=== PATIENT | female | born 1960 | race Caucasian/White ===

== ENCOUNTER → 2016-08-31 | Outpatient (CLI) | payer BC | LOC: WI 13:57 | PROVIDERS: ATTEND Specialist | DX: Z12.31 Encounter for screening mammogram for malignant neoplasm of breast (principal) | CPT/HCPCS: 77067; G0202 ==

== ENCOUNTER 2017-06-26 11:50 | Inpatient (IN) | payer BC ==
--- NOTE | 2017-06-26 12:06 | ER Document Report ---
ED Medical Screen (RME) - General Chief Complaint: Numbness of Arm Stated Complaint: LEFT SIDE NUMBNESS Time Seen by Provider: 06/26/17 12:04 Notes: Patient states that for the last week she has noticed that her left face is weak , her left hand feels weak, and she has some numbness in the left arm. TRAVEL OUTSIDE OF THE [place] IN LAST 30 DAYS: No - Related Data Allergies/Adverse Reactions: Penicillins Allergy (Unknown, Verified 06/26/17 11:51) Past Medical History - Past Medical History Cardiac Medical History: Denies: Hx Coronary Artery Disease, Hx Heart Attack, Hx Hypertension Pulmonary Medical History: Denies: Hx Asthma, Hx Bronchitis, Hx COPD, Hx Pneumonia Neurological Medical History: Denies: Hx Cerebrovascular Accident, Hx Seizures GI Medical History: Denies: Hx Hepatitis, Hx Hiatal Hernia, Hx Ulcer Musculoskeltal Medical History: Denies Hx Arthritis Infectious Medical History: Denies: Hx Hepatitis Past Surgical History: Reports: Hx Hysterectomy. Denies: Hx Mastectomy, Hx Open Heart Surgery, Hx Pacemaker - Immunizations Hx Diphtheria, Pertussis, Tetanus Vaccination: Yes Physical Exam - Vital signs Vitals: Temp Pulse Resp BP Pulse Ox 97.6 F 68 16 140/70 H 98 06/26/17 11:56 06/26/17 11:56 06/26/17 11:56 06/26/17 11:56 06/26/17 11:56 Course - Vital Signs Vital signs: Temp Pulse Resp BP Pulse Ox 97.6 F 68 16 140/70 H 98 06/26/17 11:56 06/26/17 11:56 06/26/17 11:56 06/26/17 11:56 06/26/17 11:56
[2017-06-26 12:45] LABS: ABSOLUTE BASOPHILS # (AUTO) 0.1 10^3/uL (0.0-0.2); ABSOLUTE EOSINOPHILS # (AUTO) 0.2 10^3/uL (0.0-0.6); ABSOLUTE LYMPHOCYTES (AUTO) 3.3 10^3/uL (0.5-4.7); ABSOLUTE MONOCYTES (AUTO) 0.6 10^3/uL (0.1-1.4); ABSOLUTE NEUT (AUTO) 5.1 10^3/uL (1.7-8.2); BASOPHILS % (AUTO) 0.9 % (0-2); EOSINOPHILS % (AUTO) 1.8 % (0-6); HEMATOCRIT 39.8 % (36.0-47.0); HEMOGLOBIN 13.6 g/dL (12.0-15.5); MEAN CORPUSCULAR HGB CONC 34.3 g/dL (32.0-36.0); MEAN CORPUSCULAR VOLUME 90 fl (80-97); MONOCYTES % (AUTO) 6.2 % (3-13); RED CELL DISTRIBUTION WIDTH 13.3 % (11.5-14.0); SEGMENTED NEUTROPHILS % (AUTO) 55.1 % (42-78); WHITE BLOOD COUNT 9.3 10^3/uL (4.0-10.5)
[2017-06-26 12:50] LABS: ALANINE AMINOTRANSFERASE 33 U/L (9-52); ALBUMIN 4.5 g/dL (3.5-5.0); ALKALINE PHOSPHATASE 106 U/L (38-126); ANION GAP 8 (5-19); ASPARTATE AMINO TRANSFERASE 28 U/L (14-36); BILIRUBIN,DIRECT 0.1 mg/dL (0.0-0.4); BILIRUBIN,TOTAL 0.3 mg/dL (0.2-1.3); BLOOD UREA NITROGEN 15 mg/dL (7-20); CALCIUM 9.7 mg/dL (8.4-10.2); CARBON DIOXIDE 31 mmol/L (22-30); CHLORIDE 103 mmol/L (98-107); CREATININE RESULT 0.67 mg/dL (0.52-1.25); GLUCOSE 95 mg/dL (75-110); POTASSIUM 3.8 mmol/L (3.6-5.0); SODIUM 142.4 mmol/L (137-145); TOTAL PROTEIN 7.7 g/dL (6.3-8.2)
--- NOTE | 2017-06-26 13:05 | RADIOLOGY REPORT (SQ) ---
EXAM DESCRIPTION: CT HEAD WITHOUT COMPLETED DATE/TIME: 06/26/2017 12:43 pm REASON FOR STUDY: left face/hand weak COMPARISON: None. TECHNIQUE: Axial images acquired through the brain without intravenous contrast. Images reviewed wi th bone, brain and subdural windows. Images stored on PACS. All CT scanners at this facility use dose modulation, iterative reconstruction, and/or weight based d osing when appropriate to reduce radiation dose to as low as reasonably achievable (ALARA). [facility]: Dose Right [facility]: CareDose [facility]: Dose Right [facility]: Teradose 4D [facility]: Smart ClickScanShare RADIATION DOSE: CT Rad equipment meets quality standard of care and radiation dose reduction techniq ues were employed. CTDIvol: 64.6 mGy. DLP: 1163 mGy-cm. mGy. LIMITATIONS: None. FINDINGS: VENTRICLES: Normal size and contour. CEREBRUM: No masses. No hemorrhage. No midline shift. No evidence for acute infarction. Normal gra y/white matter differentiation. No areas of low density in the white matter. CEREBELLUM: No masses. No hemorrhage. No alteration of density. No evidence for acute infarction. EXTRAAXIAL SPACES: No fluid collections. No masses. ORBITS AND GLOBE: No intra- or extraconal masses. Normal contour of globe without masses. CALVARIUM: No fracture. PARANASAL SINUSES: No fluid or mucosal thickening. SOFT TISSUES: No mass or hematoma. OTHER: No other significant finding. IMPRESSION: NORMAL BRAIN CT WITHOUT CONTRAST. EVIDENCE OF ACUTE STROKE: NO. COMMENT: Quality ID # [id number]: Final reports with documentation of one or more dose reduction techniques (e.g., Automated exposure control, adjustment of the mA and/or kV according to patient size, use of iterative reconstruction technique) TECHNICAL DOCUMENTATION: JOB ID: [id number] [employer]- All Rights Reserved
--- NOTE | 2017-06-26 13:15 | EKG REPORT ---
SEVERITY:- NORMAL ECG - SINUS RHYTHM : Confirmed by: Nain Ma MD 26-Jun-2017 13:14:10
--- NOTE | 2017-06-26 15:11 | RADIOLOGY REPORT (SQ) ---
EXAM DESCRIPTION: MRI HEAD WITHOUT COMPLETED DATE/TIME: 06/26/2017 2:46 pm REASON FOR STUDY: left eye lid droop-, left hand numbness COMPARISON: CT brain 06/26/2017 TECHNIQUE: Multiplanar imaging includes non-contrasted T1, T2, FLAIR, and diffusion with ADC map seq uences. Images stored on PACS. LIMITATIONS: None. FINDINGS: ANATOMY: No developmental anomalies. Normal vascular flow voids. Pituitary gland flattene d against the sellar floor, an anatomic variant CSF SPACES: Normal in size and contour. No hemorrhage. CEREBRUM: Diffusion-weighted images are positive for several punctate foci of restricted diffusion in the nash-white junction along the right frontal and right parietal regions best shown on diffusion i mages 21 and 22. In these areas on the T1 and T2 images, no parenchymal hemorrhage is identified. Remainder of the brain parenchyma is otherwise unremarkable. No mass effect or midline shift. No ac [place] hemorrhage POSTERIOR FOSSA: No signal alteration. No hemorrhage. No edema, masses or mass effect. Internal js tory canals, cerebello-pontine angles, mastoids normal. DIFFUSION IMAGING: Positive as above. ORBITS: No masses. Globes normal. PARANASAL SINUSES: Paranasal sinuses are clear. Old right mastoidectomy defects filled with fluid. Middle ear fluid on the right. OTHER: No other significant finding. IMPRESSION: Punctate acute infarcts at the nash-white junction of the right frontal and right pariet al regions. EVIDENCE OF ACUTE STROKE: Yes TECHNICAL DOCUMENTATION: JOB ID: [id number] [employer]- All Rights Reserved
[2017-06-26] MEDS ORDERED: ASPIRIN 325 MG TABLET PO ONE (15:16)
--- NOTE | 2017-06-26 15:21 | ER Document Report ---
ED General - General Chief Complaint: Numbness of Arm Stated Complaint: LEFT SIDE NUMBNESS Time Seen by Provider: 06/26/17 12:04 Mode of Arrival: Ambulatory Information source: Patient Notes: 56-year-old female presents with complaints of numbness tingling sensation in her left hand as well as left eye droop. Patient notes symptoms have been ongoing for approximately 5 days. She denies any fevers or chills denies any head trauma. Patient denies any previous CVA, she is not on any blood thinners TRAVEL OUTSIDE OF THE [place] IN LAST 30 DAYS: No - HPI Onset: Last week Onset/Duration: Persistent Quality of pain: No pain Severity: Mild Pain Level: Denies Associated symptoms: Other Exacerbated by: Denies Relieved by: Denies Similar symptoms previously: Yes Recently seen / treated by doctor: Yes - Seen by PCP - Related Data Allergies/Adverse Reactions: Penicillins Allergy (Unknown, Verified 06/26/17 11:51) Home Medications: Current Home Medications Acyclovir [Acyclovir 400 mg Tablet] 400 mg PO BID 06/26/17 [History] Loteprednol Etabonate [Lotemax] 1 drop OP PRN PRN 06/26/17 [History] Timolol Maleate [Timolol Maleate] 1 drop OP PRN PRN 06/26/17 [History] Past Medical History - Social History Smoking Status: Former Smoker Cigarette use (# per day): No Chew tobacco use (# tins/day): No Smoking Education Provided: No Frequency of alcohol use: Rare Drug Abuse: None Family History: Reviewed & Not Pertinent Patient has suicidal ideation: No Patient has homicidal ideation: No - Past Medical History Cardiac Medical History: Denies: Hx Coronary Artery Disease, Hx Heart Attack, Hx Hypertension Pulmonary Medical History: Denies: Hx Asthma, Hx Bronchitis, Hx COPD, Hx Pneumonia Neurological Medical History: Denies: Hx Cerebrovascular Accident, Hx Seizures Renal/ Medical History: Denies: Hx Peritoneal Dialysis GI Medical History: Denies: Hx Hepatitis, Hx Hiatal Hernia, Hx Ulcer Musculoskeltal Medical History: Denies Hx Arthritis Infectious Medical History: Denies: Hx Hepatitis Past Surgical History: Reports: Hx Hysterectomy. Denies: Hx Mastectomy, Hx Open Heart Surgery, Hx Pacemaker - Immunizations Hx Diphtheria, Pertussis, Tetanus Vaccination: Yes Review of Systems - Review of Systems Notes: REVIEW OF SYSTEMS: CONSTITUTIONAL : Denies fever, chills, or sweats. Denies recent illness. EENT: Denies eye, ear, throat, or mouth pain or symptoms. Denies nasal or sinus congestion or discharge. Denies throat, tongue, or mouth swelling or difficulty swallowing. CARDIOVASCULAR: Denies chest pain. Denies palpitations or racing or irregular heart beat. Denies ankle edema. RESPIRATORY: Denies cough, cold, or chest congestion. Denies shortness of breath, difficulty breathing, or wheezing. GASTROINTESTINAL: Denies abdominal pain or distention. Denies nausea, vomiting , or diarrhea. Denies blood in vomitus, stools, or per rectum. Denies black, tarry stools. Denies constipation. GENITOURINARY: Denies difficulty urinating, painful urination, burning, frequency, blood in urine, or discharge. FEMALE GENITOURINARY: Denies vaginal bleeding, heavy or abnormal periods, irregular periods. Denies vaginal discharge or odor. MUSCULOSKELETAL: Denies back or neck pain or stiffness. Denies joint pain or swelling. SKIN: Denies rash, lesions or sores. HEMATOLOGIC : Denies easy bruising or bleeding. LYMPHATIC: Denies swollen, enlarged glands. NEUROLOGICAL: Admits to left eye drooping left hand paresthesia PSYCHIATRIC: Denies anxiety or stress. Denies depression, suicidal ideation, or homicidal ideation. ALL OTHER SYSTEMS REVIEWED AND NEGATIVE. PHYSICAL EXAMINATION: GENERAL: Well-appearing, well-nourished and in no acute distress. HEAD: Atraumatic, normocephalic. EYES: Pupils equal round and reactive to light, extraocular movements intact, conjunctiva are normal. ENT: Nares patent, oropharynx clear without exudates. Moist mucous membranes. NECK: Normal range of motion, supple without lymphadenopathy LUNGS: Breath sounds clear to auscultation bilaterally and equal. No wheezes rales or rhonchi. HEART: Regular rate and rhythm without murmurs ABDOMEN: Soft, nontender, nondistended abdomen. No guarding, no rebound. No masses appreciated. Female : deferred Musculoskeletal: Normal range of motion, no pitting or edema. No cyanosis. NEUROLOGICAL: Cranial nerves grossly intact. Normal speech, normal gait. Normal sensory, motor exams except for paresthesia of the left hand PSYCH: Normal mood, normal affect. SKIN: Warm, Dry, normal turgor, no rashes or lesions noted. Dictation was performed using [employer] voice recognition software Physical Exam - Vital signs Vitals: Temp Pulse Resp BP Pulse Ox 97.6 F 68 16 140/70 H 98 06/26/17 11:56 06/26/17 11:56 06/26/17 11:56 06/26/17 11:56 06/26/17 11:56 Course - Re-evaluation Re-evalutation: 06/26/17 15:20 Punctate acute infarcts noted o nthe right frontal and right parietal regions, pt will be observed i nthe hospitla she is out of the time frame for thrombolytics 06/26/17 16:39 Patient will be admitted to the hospitalist service - Vital Signs Vital signs: Temp Pulse Resp BP Pulse Ox 97.6 F 68 17 136/84 H 98 06/26/17 11:56 06/26/17 11:56 06/26/17 16:01 06/26/17 16:01 06/26/17 16:01 - Laboratory Result Diagrams: 06/26/17 12:01 06/26/17 12:01 Laboratory results interpreted by me: 06/26/17 12:01 Carbon Dioxide 31 H - Diagnostic Test Radiology reviewed: Image reviewed, Reports reviewed Discharge - Discharge Clinical Impression: Stroke Qualifiers: CVA mechanism: embolism Precerebral and cerebral artery: anterior cerebral artery Laterality of affected vessel: right Qualified Code(s): I63.421 - Cerebral infarction due to embolism of right anterior cerebral artery Condition: Stable Disposition: ADMITTED INPATIENT Admitting Provider: Hospitalist Unit Admitted: [facility]
[2017-06-26] MEDS ORDERED: ACETAMINOPHEN 325 MG TABLET PO PRN (16:25)
[2017-06-26] MEDS ORDERED: ONDANSETRON HCL INJ/PF 4 MG/2 ML SDV IV PRN (16:25)
[2017-06-26] MEDS ORDERED: DOCUSATE SODIUM 100 MG CAPSULE PO PRN (16:36)
[2017-06-26] MEDS ORDERED: (PENDING PHARMACY ID) (Loteprednol Etabonate [Lotemax] 1 DROP) OP PRN (16:37)
[2017-06-26] MEDS ORDERED: TIMOLOL MALEATE 0.5% OPH SOLN 5 ML OP PRN (16:37)
--- NOTE | 2017-06-26 16:42 | ER Document Report ---
ED NIH Stroke Scale - NIH Stroke Scale *: 1. NIH scale should be completed with appropriate accompanying assessment tools. *: 2. The NIH should reflect what the patient is capable of doing and should not be coached by the clinician. 1a. Level of Consciousness: 0=Alert;keenly responsive -: 1=Drowsy -: 2=Obtunded -: 3=Coma/unresponsive or reflex to noxious stimuli. 1a. Responses: 0 1b. Orientation Questions: a. What month is it? -: b. How old are you? -: 0=Answers both questions correctly. -: 1=Answers one question correctly or patient is intubated or has orotracheal trauma. -: 2=Answers neither question correctly. 1b. Responses: 0 1c. Response to commands: a. Open and close eyes? -: b. Container Finishing Inspector and release hand? -: Credit is given despite weakness. Demonstration of task is permitted. Substitute command if hands cannot be used. -: 0=Performs both tasks correctly -: 1=Performs one task correctly -: 2=Performs neither task correctly 1c. Responses: 0 2. Gaze: Establish eye contact and instruct patient to "Follow my finger" -: 0=Normal -: 1=Partial gaze palsy. Gaze is abnormal in one or both eyes, but where forced deviation or total gaze paresis is not present. -: 2=Forced deviation or total gaze paresis. 2. Responses: 0 3. Visual Howard: Sees fingers in all four quadrants. -: 0=No visual loss. -: 1=Partial hemianopsia. -: 2=Complete hemianopsia. -: 3=Bilateral hemianopsia (including Cortical blindness) 3. Responses: 0 4. Facial Movement: Instruct patient to: -: a. Show me your teeth -: b. Raise your eyebrows -: c. Close your eyes -: d. Smile -: 0=Normal symmetrical movement -: 1=Minor paralysis (flattened nasolabial fold, asymmetry on smiling). -: 2=Partial paralysis (total or near total paralysis of lower face). -: 3=Complete paralysis of upper and lower face 4. Responses: 1 5. Motor functions (left arm): Alternate sides and extend each arm with palms down (90 degrees if sitting or 45 degrees for supine). -: 0=No drift;limb holds for full 10 seconds. -: 1=Drift; limb holds but drifts down before full 10 seconds, but does not hit bed. -: 2=Some effort against gravity; limb cannot get to or maintain position. -: 3=No effort against gravity; limb falls. -: 4=No movement. -: UN=Amputation, joint fusion, explain in comments. 5. Responses (left arm): 0 5. Motor Functions (right arm): Alternate sides and extend each arm with palms down (90 degrees if sitting or 45 degrees for supine). -: 0=No drift;limb holds for full 10 seconds. -: 1=Drift; limb holds but drifts down before full 10 seconds, but does not hit bed. -: 2=Some effort against gravity; limb cannot get to or maintain position. -: 3=No effort against gravity; limb falls. -: 4=No movement. -: UN=Amputation, joint fusion, explain in comments. 5. Responses (right arm): 0 6. Motor Functions (left leg): With patient lying supine, alternate sides and extend each leg (30 degrees always while supine). -: 0=No drift, leg holds position for full 5 seconds -: 1=Drift; leg falls before full 5 seconds but does not hit bed. -: 2=Some effort against gravity, leg falls to bed but some effort against gravity. -: 3=No effort against gravity, leg falls to bed immediately. -: 4=No movement. -: UN=Amputation, joint fusion; explain in comments. 6. Responses (left leg): 0 6. Motor Functions (right leg): With patient lying supine, alternate sides and extend each leg (30 degrees always while supine). -: 0=No drift, leg holds position for full 5 seconds -: 1=Drift; leg falls before full 5 seconds but does not hit bed. -: 2=Some effort against gravity, leg falls to bed but some effort against gravity. -: 3=No effort against gravity, leg falls to bed immediately. -: 4=No movement. -: UN=Amputation, joint fusion; explain in comments. 6. Responses (right leg): 0 7. Limb Ataxia: With eyes open instruct patient to: -: a. "Touch your finger to your nose". -: b. "Touch your heel to your lloyd" -: 0=Absent -: 1=Present in one limb. -: 2=Present in two limbs. -: UN=Amputation or joint fusion; explain in comments. 7. Responses: 0 8. Sensory: Test sensation using pinprick or noxious stimuli. Test as many body parts as possible. -: 0=Normal;no sensory loss -: 1=Mile to moderate sensory loss (patient feels pin prick but is less sharp on affected side). -: 2=Severe or total sensory loss. 8. Responses: 1 9. Best Language: Instruct patient to: -: a. "Describe what you see in this picture." -: b. "Name the items in this picture." -: c. "Read these sentences." -: 0=No aphasia, normal -: 1=Mild to moderate aphasia. -: 2=Severe aphasia -: 3=Mute, global aphasia, no usable speech or auditory comprehension. 9. Responses: 0 10. Articulation, Dysarthia: Instruct patient to: -: "Read these words" or "Repeat these words" -: 0=Normal -: 1=Mild to moderate; patient may slur some words but can be understood without difficulty. -: 2=Severe; patients speech so slurred as to be unintelligible in the absence of dysphasia. -: UN=Intubated or other physical barrier, explain in comments. 10. Responses: 0 11. Extinction or inattention: 0=No abnormality -: 1= Visual, tactile, auditory, spatial, or personal inattention or extinction to bilateral simulation in one or the sensory modalities. -: 2=Profound chris-inattention or chris-inattention to more than one modality; does not recognize own hand. 11. Responses: 0 Total Score: 2
[2017-06-26 17:05] LABS: PARTIAL THROMBOPLASTIN TIME 28.3 SEC (23.5-35.8); PROTHROMBIN TIME 12.4 SEC (11.4-15.4)
--- NOTE | 2017-06-26 17:06 | PDOC H&P ---
History of Present Illness Admission Date/PCP: 06/26/17 16:09 Patient complains of: left sided numbness, weakness for a couple of days History of Present Illness: FABIAN LONG is a 56 year old female reports to the ED from home with complaints of left eye droop, left finger numbness and hand weakness and left leg weakness of at least 24hrs duration. She first started feeling "bad" about a week ago with Rt temporal forehead SAUNDERS as intermittent sharp stabbing nonradiating pain with associated Rt neck and ear pain that lasted a couple of days. Shortly thereafter she noticed her left eyelid drooping and "pressure" sensation in left fingers 3-5. Over the next days these became more noticeable culminating in left leg clumsiness, left hand weakness last night prompting a visit to the ED today for evaulation. she denies vision changes, difficulty chewing her food or swallowing, hearing changes, slurred speech, chest pain, palpitations, dyspnea, fevers/chills, stiff neck, sore throat and she's never had this before. she doesn't take prophylactic ASA and has no prior hx of HTN, DM, hyperlipidemia , chronic migraines/HAs. she is postmenopausal and takes estrogen supplement; she quit smoking 10yrs ago but has at least 20 pk year history prior to quitting. she has a strong family hx of vascular disease with early AMI in her father ( at 46y.o.), brother in his 50's who also has DM, mother from ruptured aneurysm and sister with congenital HD and prior CVA. she is unaware of any inflammatory or autoimmune diseases in her family. she is right hand dominant. eval in ED shows 2 punctate ischemic areas on MRI that likely correlate with her symptoms c/w with acute/subacute CVA and we were asked to admit for further eval and management. she was given 324mg ASA in ED. she was not hypertensive upon arrival. Past Medical History Cardiac Medical History: Denies: Coronary Artery Disease, Myocardial Infarction, Hypertension Pulmonary Medical History: Denies: Asthma, Bronchitis, Chronic Obstructive Pulmonary Disease (COPD), Pneumonia Neurological Medical History: Denies: Migraine, Seizures Endocrine Medical History: Denies: None Malignancy Medical History: Denies: None GI Medical History: Denies: Hepatitis, Hiatal Hernia Musculoskeltal Medical History: Denies: Arthritis Hematology: Denies: Anemia, Sickle Cell Disease Past Surgical History Past Surgical History: Reports: Appendectomy, Hysterectomy, Tonsillectomy Denies: Amputation, Mastectomy, Pacemaker Social History Information Source: Patient Lives with: Family Smoking Status: Former Smoker Cigarettes Packs Per Day: 1 Number of Years Smokin Last Time Smoked: 2016 Frequency of Alcohol Use: Occasional Hx Recreational Drug Use: No Drugs: None Hx Prescription Drug Abuse: No - Advance Directive Resuscitation Status: Full Code Family History Family History: CAD, CVA, DM Parental Family History Reviewed: Yes Children Family History Reviewed: Yes Sibling(s) Family History Reviewed.: Yes Medication/Allergy Home Medications: Estradiol [Estrace] 0.5 mg PO DAILY 12/02/15 L. Rhamnosus GG/Inulin [Culturelle Capsule] 1 cap PO DAILY 12/02/15 Acyclovir [Acyclovir 400 mg Tablet] 400 mg PO BID 06/26/17 Loteprednol Etabonate [Lotemax] 1 drop OP PRN PRN 06/26/17 Timolol Maleate [Timolol Maleate] 1 drop OP PRN PRN 06/26/17 Allergies/Adverse Reactions: Penicillins Allergy (Unknown, Verified 06/26/17 11:51) Review of Systems All systems: reviewed and no additional remarkable complaints except as stated - all systems reviewed, see HPI, remaining systems negative Physical Exam Vital Signs: Temp Pulse Resp BP Pulse Ox 97.6 F 68 17 136/84 H 98 06/26/17 11:56 06/26/17 11:56 06/26/17 16:01 06/26/17 16:01 06/26/17 16:01 General appearance: PRESENT: no acute distress, obese, well-developed, well- nourished Head exam: PRESENT: atraumatic, normocephalic Eye exam: PRESENT: EOMI, PERRLA, other - left eye ptosis. ABSENT: conjunctival injection Mouth exam: PRESENT: moist, neck supple, tongue midline, other - left facial droop Throat exam: ABSENT: tonsillar erythema, tonsillar exudate Neck exam: PRESENT: full ROM. ABSENT: carotid bruit, JVD, lymphadenopathy, meningismus, tenderness, tracheal deviation Respiratory exam: PRESENT: clear to auscultation palmira, unlabored. ABSENT: accessory muscle use Cardiovascular exam: PRESENT: RRR. ABSENT: diastolic murmur, gallop, rubs, systolic murmur, tachycardia Pulses: PRESENT: normal carotid pulses, normal radial pulses GI/Abdominal exam: PRESENT: normal bowel sounds, soft. ABSENT: organolmegaly, tenderness Extremities exam: PRESENT: full ROM. ABSENT: clubbing, pedal edema, tenderness Musculoskeletal exam: PRESENT: ambulatory, normal inspection Neurological exam: PRESENT: alert, awake, oriented to person, oriented to place , oriented to time, oriented to situation, reflexes normal, motor sensory deficit - loss of sensation to light touch from her left forehead down her neck and shoulder and arm all the way to the left 3-5 digits but sparing her leg and torso; there is left inflatable buildings laminator weakness and left hip abductor weakness compared to the Right. ABSENT: aphasic Psychiatric exam: PRESENT: appropriate affect, normal mood Focused psych exam: ABSENT: pressured speech Skin exam: PRESENT: dry, warm. ABSENT: rash Results Laboratory Results: 06/26/17 12:01 06/26/17 12:01 MCV 90 fl (80-97) 06/26/17 12:01 MCH 31.0 pg (27.0-33.4) 06/26/17 12:01 MCHC 34.3 g/dL (32.0-36.0) 06/26/17 12:01 RDW 13.3 % (11.5-14.0) 06/26/17 12:01 Seg Neutrophils % 55.1 % (42-78) 06/26/17 12:01 Lymphocytes % 36.0 % (13-45) 06/26/17 12:01 Monocytes % 6.2 % (3-13) 06/26/17 12:01 Eosinophils % 1.8 % (0-6) 06/26/17 12:01 Basophils % 0.9 % (0-2) 06/26/17 12:01 Absolute Neutrophils 5.1 10^3/uL (1.7-8.2) 06/26/17 12:01 Absolute Lymphocytes 3.3 10^3/uL (0.5-4.7) 06/26/17 12:01 Absolute Monocytes 0.6 10^3/uL (0.1-1.4) 06/26/17 12:01 Absolute Eosinophils 0.2 10^3/uL (0.0-0.6) 06/26/17 12:01 Absolute Basophils 0.1 10^3/uL (0.0-0.2) 06/26/17 12:01 Chloride 103 mmol/L (98-107) 06/26/17 12:01 Carbon Dioxide 31 mmol/L (22-30) H 06/26/17 12:01 Anion Gap 8 (5-19) 06/26/17 12:01 Est GFR ( Amer) > 60 (>60) 06/26/17 12:01 Est GFR (Non-Af Amer) > 60 (>60) 06/26/17 12:01 Glucose 95 mg/dL (75-110) 06/26/17 12:01 Calcium 9.7 mg/dL (8.4-10.2) 06/26/17 12:01 Total Bilirubin 0.3 mg/dL (0.2-1.3) 06/26/17 12:01 AST 28 U/L (14-36) 06/26/17 12:01 ALT 33 U/L (9-52) 06/26/17 12:01 Alkaline Phosphatase 106 U/L (38-126) 06/26/17 12:01 Total Protein 7.7 g/dL (6.3-8.2) 06/26/17 12:01 Albumin 4.5 g/dL (3.5-5.0) 06/26/17 12:01 EKG Comments: NSR with normal QTc and no ectopy or ischemic changes Impressions: Head CT 06/26/17 12:04 IMPRESSION: NORMAL BRAIN CT WITHOUT CONTRAST. EVIDENCE OF ACUTE STROKE: NO. Head MRI 06/26/17 13:23 IMPRESSION: Punctate acute infarcts at the nash-white junction of the right frontal and right parietal regions. EVIDENCE OF ACUTE STROKE: Yes Status: Image reviewed by me - agree with rads Assessment & Plan - Diagnosis (1) Acute ischemic multifocal right-sided anterior circulation stroke Is this a current diagnosis for this admission?: Yes Plan: Right frontal and parietal lobe multifocal ischemia of unclear etiology. Risks include prior tobacco use, current estrogen replacement, obesity and strong family history of vascular disease manifested as AMI and CVA's. admit for further investigation including echo and carotid dopplers to r/o embolic source, labs for correctable metabolic risk factors including lipids, B12, TSH, CRP, A1c. MENDS through the night and have all therapies evaluate, she passed her bedside swallow eval per the ED nurse. Hold estrogen and start full dose ASA, high intensity statin and low dose ACEi for protective effects. (2) Parietal lobe infarction Is this a current diagnosis for this admission?: Yes Plan: Right sided with resultant left hemiparesis. I think this is the lesion accounting for most of her symptoms. eval and treat noted above (3) Postmenopausal Is this a current diagnosis for this admission?: Yes Plan: no more estrogen due to risk for stroke. 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 - Time Time Spent: Greater than 70 Minutes Medications reviewed and adjusted accordingly: Yes - Inpatient Certification Based on my medical assessment, after consideration of the patient's comorbidities, presenting symptoms, or acuity I expect that the services needed warrant INPATIENT care.: Yes I certify that my determination is in accordance with my understanding of Medicare's requirements for reasonable and necessary INPATIENT services [42 CFR 412.3e].: Yes Medical Necessity: Significant Comorbidiites Make Outpatient Treatment Too Risky , Need Close Monitoring Due to Risk of Patient Decompensation, Need For Continuous Telemetry Monitoring, Need for Neurological Checks
[2017-06-26] MEDS ORDERED: ENOXAPARIN SODIUM INJ 40 MG/0.4 ML DISP.SYRIN SUBCUT ONE (18:00)
[2017-06-26] MEDS: ACYCLOVIR 200 MG CAPSULE PO SCH (21:10)
[2017-06-26] MEDS ORDERED: ATORVASTATIN CALCIUM 80 MG TABLET PO SCH (22:00)
[2017-06-27 05:08] LABS: ABSOLUTE BASOPHILS # (AUTO) 0.1 10^3/uL (0.0-0.2); ABSOLUTE EOSINOPHILS # (AUTO) 0.1 10^3/uL (0.0-0.6); ABSOLUTE LYMPHOCYTES (AUTO) 3.6 10^3/uL (0.5-4.7); ABSOLUTE MONOCYTES (AUTO) 0.6 10^3/uL (0.1-1.4); BASOPHILS % (AUTO) 1.2 % (0-2); EOSINOPHILS % (AUTO) 1.5 % (0-6); HEMATOCRIT 38.8 % (36.0-47.0); HEMOGLOBIN 13.3 g/dL (12.0-15.5); HGB HCT DIFFERENCE 1.1; LYMPHOCYTES % (AUTO) 42.7 % (13-45); MEAN CORPUSCULAR HEMOGLOBIN 30.7 pg (27.0-33.4); MEAN CORPUSCULAR HGB CONC 34.2 g/dL (32.0-36.0); MEAN CORPUSCULAR VOLUME 90 fl (80-97); RED BLOOD COUNT 4.32 10^6/uL (3.72-5.28); RED CELL DISTRIBUTION WIDTH 13.1 % (11.5-14.0); SEGMENTED NEUTROPHILS % (AUTO) 47.6 % (42-78); WHITE BLOOD COUNT 8.5 10^3/uL (4.0-10.5)
[2017-06-27 05:25] LABS: ALANINE AMINOTRANSFERASE 33 U/L (9-52); ALBUMIN 3.9 g/dL (3.5-5.0); ALKALINE PHOSPHATASE 88 U/L (38-126); ANION GAP 9 (5-19); ASPARTATE AMINO TRANSFERASE 22 U/L (14-36); BILIRUBIN,DIRECT 0.1 mg/dL (0.0-0.4); BILIRUBIN,TOTAL 0.3 mg/dL (0.2-1.3); BLOOD UREA NITROGEN 14 mg/dL (7-20); CALCIUM 9.8 mg/dL (8.4-10.2); CARBON DIOXIDE 29 mmol/L (22-30); CHLORIDE 106 mmol/L (98-107); Direct HDL 61 mg/dL (>40); GLUCOSE 96 mg/dL (75-110); POTASSIUM 4.5 mmol/L (3.6-5.0); SODIUM 143.9 mmol/L (137-145); TOTAL PROTEIN 6.6 g/dL (6.3-8.2); TRIGLYCERIDES 142 mg/dL (<150)
[2017-06-27 05:37] LABS: DIRECT LDL 131 mg/dL (<100)
[2017-06-27 05:53] LABS: THYROID STIMULATING HORMONE 2.02 uIU/mL (0.47-4.68)
[2017-06-27] MEDS ORDERED: LANSOPRAZOLE 30 MG TAB.RAP.DR PO SCH (06:00)
[2017-06-27] MEDS ORDERED: NORMAL SALINE 1000 ML 1,000 ML IV ONE (06:30)
[2017-06-27] MEDS ORDERED: LISINOPRIL 5 MG TABLET PO SCH (10:00)
[2017-06-27] MEDS ORDERED: RHAMNOSUS GG PO SCH (10:00)
[2017-06-27] MEDS ORDERED: ASPIRIN 325 MG TABLET, ENT COATED PO SCH (10:00)
[2017-06-27] MEDS ORDERED: ENOXAPARIN SODIUM INJ 40 MG/0.4 ML DISP.SYRIN SUBCUT SCH (10:00)
[2017-06-27] MEDS ORDERED: LACTOBACILLUS ACIDOPHILUS 250 MG TAB PO SCH (10:00)
[2017-06-27] MEDS ORDERED: TIMOLOL MALEATE 0.5% OPH SOLN 5 ML OS SCH (10:00)
[2017-06-27] MEDS ORDERED: (PENDING PHARMACY ID) (Loteprednol Etabonate [Lotemax 0.5% Ophth Susp] 1 DROP) OS SCH (10:00)
[2017-06-27] MEDS ORDERED: INULIN PO SCH (10:00)
[2017-06-27] MEDS: ACYCLOVIR 200 MG CAPSULE PO SCH (10:56)
[2017-06-27] MEDS ORDERED: LISINOPRIL 5 MG TABLET PO ONE (12:00)
[2017-06-27] MEDS ORDERED: ONDANSETRON HCL INJ/PF 4 MG/2 ML SDV IV PRN (12:00)
--- NOTE | 2017-06-27 12:43 | RADIOLOGY REPORT (SQ) ---
EXAM DESCRIPTION: CAROTID DOPPLER COMPLETED DATE/TIME: 06/27/2017 11:21 am REASON FOR STUDY: embolic CVA COMPARISON: MRI brain 06/26/2017 CT brain 06/26/2017 TECHNIQUE: Grayscale ultrasound, Doppler velocity and spectra, and color Doppler images acquired of the extra-cranial carotid and vertebral arteries. Images stored on PACS. LIMITATIONS: None. FINDINGS: RIGHT CAROTID CCA Velocities: Within normal limits. ICA Velocities Peak systolic 2.3 m/s. End diastolic 0.7 m/s. Proximal ICA/CCA peak systolic ratio 3.0. There is heavy calcific plaque at the origin of the right internal carotid artery. Imaging just dist al to the shadowing plaque demonstrates turbulent flow, and peak systolic and end-diastolic velocitie s in the 50 to 69% range, closer to 69%. LEFT CAROTID CCA Velocities: Within normal limits. ICA Velocities Peak systolic 0.75 m/s. End diastolic 0.26 m/s. Proximal ICA/CCA peak systolic ratio 1.2. Spectra normal. No significant plaque. VERTEBRAL ARTERIES: Antegrade flow. Normal waveforms. SUBCLAVIAN ARTERIES: Not evaluated OTHER: No other significant finding. IMPRESSION: Significant plaque at the right carotid bifurcation. Velocities immediately distal to p laque suggest 50 to 69% diameter stenosis. Velocities are at the upper range for 50 to 69% stenosis. No left-sided significant stenosis at the carotid bifurcation Antegrade pulsatile vertebral artery flow COMMENT: Quality ID #[id number]: Velocity criteria are extrapolated from the diameter data as defined by t he Society of Radiologists in Ultrasound Consensus Conference. Radiology 2003: 229; 340-346. TECHNICAL DOCUMENTATION: JOB ID: [id number] Access Point- All Rights Reserved
--- NOTE | 2017-06-27 13:28 | XCELERA REPORT ---
[address] [address] Transthoracic Echocardiogram Report Name: FABIAN LONG Age: 56 yrs Gender: Female : 1960 Patient Status: Inpatient Patient Location: [address] [place], [place] [address] Study Date: 06/27/2017 09:17 AM Height: 60 in Weight: 200 lb BSA: 1.9 m2 Procedure: A two-dimensional transthoracic echocardiogram with color flow and Doppler was performed. Study Quality: Fair. Reason For Study: embolic CVA History: CVA. Ordering Physician: RONNIE SERRANO Performed By: Berta Fountain Interpretation Summary There is no obvious cardiac source of embolus noted on this transthoracic echocardiogram. Follow-up with a [facility] is suggested if cardiac source is still suspected. The left ventricle is normal in size. There is normal left ventricular wall thickness. LV EF is > than 60% Left ventricular systolic function is normal. LV diastolic function not assessed. The left ventricular wall motion is normal. There is no thrombus. There is no ventricular septal defect visualized. The right ventricle is normal in size and function. The right atrium is normal. The left atrial size is normal. The interatrial septum is intact with no evidence for an atrial septal defect. There is no evidence of mitral valve prolapse. There is no vegetation seen on the mitral valve. There is no mitral valve stenosis. There is a trace amount of mitral regurgitation There is no aortic valvular vegetation. There is aortic sclerrosis without stenosis. There is no LVOT obstruction. No aortic regurgitation is present. There is no tricuspid stenosis. There is a mild amount of tricuspid regurgitation Right ventricular systolic pressure is normal. RVSP is 25 to 30 mm of Hg , with RA mean of 5 to 10. The inferior vena cava appeared normal and decreased > 50% with respiration (RAP 5-10 mmHg) There is no pericardial effusion. There is no obvious cardiac source of embolus noted on this transthoracic echocardiogram. Follow-up with a [facility] is suggested if cardiac source is still suspected MMode/2D Measurements & Calculations RVDd: 2.7 cm LVIDd: 4.1 cm FS: 32.7 % Ao root diam: 2.9 cm IVSd: 0.90 cm LVIDs: 2.7 cm EDV(Teich): 72.7 ml LVPWd: 0.86 cm ESV(Teich): 27.9 ml Ao root area: 6.4 cm2 EF(Teich): 61.6 % LA dimension: 3.2 cm Doppler Measurements & Calculations MV E max jg: MV P1/2t max jg: Ao V2 max: LV V1 max P.6 cm/sec 71.1 cm/sec 138.1 cm/sec 6.4 mmHg MV A max jg: MV P1/2t: 57.9 msec Ao max PG: LV V1 max: 77.0 cm/sec 7.6 mmHg 126.1 cm/sec MV E/A: 0.92 MVA(P1/2t): 3.8 cm2 MV dec slope: 359.4 cm/sec2 PA V2 max: TR max jg: 72.6 cm/sec 221.7 cm/sec PA max PG: TR max P.7 mmHg 2.1 mmHg Left Ventricle The left ventricle is normal in size. There is normal left ventricular wall thickness. LV EF is > than 60%. Left ventricular systolic function is normal. LV diastolic function not assessed. The left ventricular wall motion is normal. There is no thrombus. There is no ventricular septal defect visualized. Right Ventricle The right ventricle is normal in size and function. Atria The right atrium is normal. The left atrial size is normal. The interatrial septum is intact with no evidence for an atrial septal defect. Mitral Valve There is no evidence of mitral valve prolapse. There is no vegetation seen on the mitral valve. There is no mitral valve stenosis. There is a trace amount of mitral regurgitation. Aortic Valve There is no aortic valvular vegetation. There is aortic sclerrosis without stenosis. There is no LVOT obstruction. No aortic regurgitation is present. Tricuspid Valve There is no tricuspid stenosis. There is a mild amount of tricuspid regurgitation. Right ventricular systolic pressure is normal. RVSP is 25 to 30 mm of Hg , with RA mean of 5 to 10. Pulmonic Valve There is no pulmonic valvular stenosis. There is no pulmonic valvular regurgitation. Great Vessels The aortic root is normal size. The inferior vena cava appeared normal and decreased > 50% with respiration (RAP 5-10 mmHg). Effusions There is no pericardial effusion. : RONNIE SERRANO > Darcy Mast
--- NOTE | 2017-06-27 14:51 | PDOC DISCHARGE SUMMARY ---
General - Admit/Disc Date/PCP Admission Date/Primary Care Provider: 06/26/17 16:09 KYRA CHAUHAN MD Discharge Date: 06/27/17 - Discharge Diagnosis (1) Acute ischemic multifocal right-sided anterior circulation stroke Is this a current diagnosis for this admission?: Yes Summary: Improved with rapidly proving symptoms; modifiable risk factors include obesity , estrogen use, hyperlipidemia, peripheral arterial disease. Continue high intensity statin, low-dose lisinopril and antiplatelet therapy. She will need to establish with PCP of choice and follow-up with him within 1-2 weeks. She was counseled regarding monitoring of her blood pressure at home to keep a diary and presented to her PCP at follow-up. She was educated with multiple materials regarding ischemic stroke and by staff and myself and expresses no questions or concerns regarding discharge home at this time. She is aware the signs and symptoms that should prompt immediate return to the hospital. (2) Parietal lobe infarction Is this a current diagnosis for this admission?: Yes (3) Postmenopausal Is this a current diagnosis for this admission?: Yes Summary: Discontinue estrogen. Follow-up with gynecology for alternative postmenopausal treatments. 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 - Additional Information Resuscitation Status: Full Code Discharge Diet: Cardiac Discharge Activity: Activity As Tolerated Prescriptions: Atorvastatin Calcium [Lipitor 80 mg Tablet] 80 mg PO QHS #30 tablet Lisinopril [Prinivil 5 mg Tablet] 2.5 mg PO DAILY #30 tablet Home Medications: Acyclovir [Acyclovir 400 mg Tablet] 400 mg PO BID 06/26/17 L. Rhamnosus/C/Zinc Cit/Yeast [Culturelle Immune Defense Cap] 1 cap PO DAILY Lifitegrast [Xiidra] 1 drop OU BID 06/26/17 Loteprednol Etabonate [Lotemax 0.5% Ophth Susp] 1 drop OS DAILY 06/26/17 Timolol Maleate [Timoptic 0.5% Oph Soln 5 ml] 1 drop OS BID 06/26/17 Acyclovir [Zovirax 200 mg Capsule] 400 mg PO Q12 capsule 06/27/17 Aspirin [Ecotrin 325 mg EC Tablet] 325 mg PO DAILY tabec 06/27/17 Atorvastatin Calcium [Lipitor 80 mg Tablet] 80 mg PO QHS #30 tablet 06/27/17 Lisinopril [Prinivil 5 mg Tablet] 2.5 mg PO DAILY #30 tablet 06/27/17 History of Present Illness Patient complains of: left sided numbness, weakness for a couple of days History of Present Illness: FABIAN LONG is a 56 year old female reports to the ED from home with complaints of left eye droop, left finger numbness and hand weakness and left leg weakness of at least 24hrs duration. She first started feeling "bad" about a week ago with Rt temporal forehead SAUNDERS as intermittent sharp stabbing nonradiating pain with associated Rt neck and ear pain that lasted a couple of days. Shortly thereafter she noticed her left eyelid drooping and "pressure" sensation in left fingers 3-5. Over the next days these became more noticeable culminating in left leg clumsiness, left hand weakness last night prompting a visit to the ED today for evaulation. she denies vision changes, difficulty chewing her food or swallowing, hearing changes, slurred speech, chest pain, palpitations, dyspnea, fevers/chills, stiff neck, sore throat and she's never had this before. she doesn't take prophylactic ASA and has no prior hx of HTN, DM, hyperlipidemia , chronic migraines/HAs. she is postmenopausal and takes estrogen supplement; she quit smoking 10yrs ago but has at least 20 pk year history prior to quitting. she has a strong family hx of vascular disease with early AMI in her father ( at 46y.o.), brother in his 50's who also has DM, mother from ruptured aneurysm and sister with congenital HD and prior CVA. she is unaware of any inflammatory or autoimmune diseases in her family. she is right hand dominant. eval in ED shows 2 punctate ischemic areas on MRI that likely correlate with her symptoms c/w with acute/subacute CVA and we were asked to admit for further eval and management. she was given 324mg ASA in ED. she was not hypertensive upon arrival. Hospital Course Hospital Course: She underwent echocardiogram that showed no significant valvular disease, no thrombus, well-preserved left ventricular function. She underwent carotid Doppler studies that showed a 50-69% obstruction of the right internal carotid at the bifurcation with antegrade flow through the vertebrobasilar system and no obstruction of the left carotid artery. Her lipid panel shows inadequate control with an LDL of 131 and total cholesterol of 219. Her C-reactive protein was upper limit of normal, TSH free T4 and B12 were all normal. Her electrolytes were normal. CBC was normal and coagulopathy did not exist. Her symptoms were rapidly improving at the time of discharge with less numbness and tingling and less noticeable left eye ptosis and facial droop. Her blood pressures became a little low on the 5 mg of lisinopril and so the dose was cut to 2.5 she received a liter fluid bolus and at the time of discharge her blood pressures were systolic 120s stable. EKG did not show any arrhythmias and monitoring overnight on telemetry showed no significant ectopy. At this time the patient is hemodynamically stable for discharge home with treatment as outlined above. Physical Exam Vital Signs: Temp Pulse Resp BP Pulse Ox 97.5 F 76 20 122/77 99 06/27/17 11:44 06/27/17 12:00 06/27/17 12:00 06/27/17 12:00 06/27/17 12:00 Intake & Output 06/26/17 06/27/17 06/28/17 06:59 06:59 06:59 Intake Total 510 574 Balance 510 574 Weight 92.2 kg General appearance: PRESENT: no acute distress, obese, well-developed, well- nourished Eye exam: PRESENT: EOMI, PERRLA, other - Mild left eye ptosis. ABSENT: nystagmus Neck exam: PRESENT: full ROM. ABSENT: carotid bruit, JVD, lymphadenopathy, meningismus, tenderness, tracheal deviation Cardiovascular exam: PRESENT: RRR Neurological exam: PRESENT: alert, awake, oriented to person, oriented to time, oriented to situation, reflexes normal. ABSENT: aphasic Psychiatric exam: PRESENT: appropriate affect, normal mood Results Laboratory Results: 06/27/17 04:25 06/27/17 04:25 06/27/17 06/27/17 06/27/17 04:25 04:25 04:25 WBC 8.5 RBC 4.32 Hgb 13.3 Hct 38.8 MCV 90 MCH 30.7 MCHC 34.2 RDW 13.1 Plt Count 298 Seg Neutrophils % 47.6 Lymphocytes % 42.7 Monocytes % 7.0 Eosinophils % 1.5 Basophils % 1.2 Absolute Neutrophils 4.0 Absolute Lymphocytes 3.6 Absolute Monocytes 0.6 Absolute Eosinophils 0.1 Absolute Basophils 0.1 Sodium 143.9 Potassium 4.5 Chloride 106 Carbon Dioxide 29 Anion Gap 9 BUN 14 Creatinine 0.70 Est GFR ( Amer) > 60 Est GFR (Non-Af Amer) > 60 Glucose 96 Calcium 9.8 Total Bilirubin 0.3 AST 22 ALT 33 Alkaline Phosphatase 88 C-Reactive Protein 12.0 H Total Protein 6.6 Albumin 3.9 Triglycerides 142 Cholesterol 219.40 H LDL Cholesterol Direct 131 H VLDL Cholesterol 28.0 HDL Cholesterol 61 Vitamin B12 667.0 TSH 2.02 Free T4 0.99 Impressions: Head CT 06/26/17 12:04 IMPRESSION: NORMAL BRAIN CT WITHOUT CONTRAST. EVIDENCE OF ACUTE STROKE: NO. Head MRI 06/26/17 13:23 IMPRESSION: Punctate acute infarcts at the nash-white junction of the right frontal and right parietal regions. EVIDENCE OF ACUTE STROKE: Yes Carotid Doppler Study 06/27/17 00:00 IMPRESSION: Significant plaque at the right carotid bifurcation. Velocities immediately distal to plaque suggest 50 to 69% diameter stenosis. Velocities are at the upper range for 50 to 69% stenosis. No left-sided significant stenosis at the carotid bifurcation Antegrade pulsatile vertebral artery flow Qualifiers PATEINT BEING DISCHARGED WITH ANY OF THE FOLLOWING DIAGNOSIS?: Stroke VTE patient discharged on overlapping Therapy?: No Reason(s) for not prescribing Overlap Therapy:: Not indicated Stroke Pt being discharged on Anti-thrombolytic therapy?: No Reason(s) for not prescribing Anti-thrombolytic therapy:: Not indicated Stroke Pt being discharged on Anti-coagulation therapy?: No Reason(s) for not prescribing Anti-coagulation therapy:: Not indicated Stroke Pt being discharged on Statins?: Yes Plan Discharge Plan: Discharge home with outpatient follow-up with the PCP of choice. Return to the emergency department with any recurrent or worsening of her symptoms. Time Spent: Greater than 30 Minutes
[2017-06-27 15:42] VITALS: BP 104/67
[2017-06-28] MEDS ORDERED: LANSOPRAZOLE 30 MG TAB.RAP.DR PO SCH (06:00)
[2017-06-28] MEDS ORDERED: LISINOPRIL 5 MG TABLET PO SCH (10:00)
[2017-06-28] MEDS ORDERED: ASPIRIN 325 MG TABLET, ENT COATED PO SCH (10:00)
== END 2017-06-27 15:59 | disposition home or self-care (01) | DRG 65 ==
LOC: ER 11:50 → EH 16:09 → 3N 17:55
PROVIDERS: ADMIT Internal Medicine; ATTEND Internal Medicine
DX: I63.421 Cerebral infarction due to embolism of right anterior cerebral artery (principal); G81.94 Hemiplegia, unspecified affecting left nondominant side; B00.51 Herpesviral iridocyclitis; R29.810 Facial weakness; R20.0 Anesthesia of skin; Z87.891 Personal history of nicotine dependence; Z78.0 Asymptomatic menopausal state
CPT/HCPCS: 36415; 70450; 70551; 80053; 80061; 82607; 83036; 84439; 84443; 85025; 85610; 85730; 86140; 93005; 93010; 93306; 93880; 99285; J1650; J3490; J7030

== ENCOUNTER 2017-10-09 16:04 | Inpatient (IN) | payer BC ==
[2017-10-09] MEDS ORDERED: NORMAL SALINE 250 ML IV PRN ×2 (17:32)
[2017-10-09] MEDS ORDERED: ONDANSETRON HCL INJ/PF 4 MG/2 ML SDV IV PRN (17:34)
[2017-10-09 18:25] LABS: HEMATOCRIT 36.3 % (36.0-47.0); MEAN CORPUSCULAR HEMOGLOBIN 29.8 pg (27.0-33.4); MEAN CORPUSCULAR HGB CONC 33.1 g/dL (32.0-36.0); MEAN CORPUSCULAR VOLUME 90 fl (80-97); PLATELET COUNT 280 10^3/uL (150-450); RED BLOOD COUNT 4.03 10^6/uL (3.72-5.28); RED CELL DISTRIBUTION WIDTH 13.1 % (11.5-14.0); WHITE BLOOD COUNT 28.3 10^3/uL (4.0-10.5)
[2017-10-09 18:47] LABS: ABSOLUTE LYMPHOCYTES# (MANUAL) 1.7 10^3/uL (0.5-4.7); ABSOLUTE MONOCYTES # (MANUAL) 1.4 10^3/uL (0.1-1.4); ABSOLUTE NEUTROPHILS# (MANUAL) 25.2 10^3/uL (1.7-8.2); BAND NEUTROPHILS % (MANUAL) 1 % (3-5); BASOPHILS % (MANUAL) 0 % (0-2); EOSINOPHILS % (MANUAL) 0 % (0-6); LYMPHOCYTES % (MANUAL) 6 % (13-45); MONOCYTES % (MANUAL) 5 % (3-13); SEGMENTED NEUTROPHILS % (MAN) 88 % (42-78); TOTAL CELLS COUNTED 100
[2017-10-09 18:49] LABS: PLATELET COMMENT ADEQUATE; RBC MORPHOLOGY COMMENT NORMO-CYTIC/CHROMIC
[2017-10-09 18:51] LABS: ALANINE AMINOTRANSFERASE 45 U/L (9-52); ALBUMIN 3.9 g/dL (3.5-5.0); ALKALINE PHOSPHATASE 105 U/L (38-126); ANION GAP 11 (5-19); ASPARTATE AMINO TRANSFERASE 22 U/L (14-36); BILIRUBIN,DIRECT 0.1 mg/dL (0.0-0.4); BILIRUBIN,TOTAL 0.5 mg/dL (0.2-1.3); BLOOD UREA NITROGEN 8 mg/dL (7-20); CALCIUM 9.4 mg/dL (8.4-10.2); CARBON DIOXIDE 26 mmol/L (22-30); CHLORIDE 99 mmol/L (98-107); GLUCOSE 147 mg/dL (75-110); LIPASE 31.5 U/L (23-300); POTASSIUM 3.5 mmol/L (3.6-5.0); TOTAL PROTEIN 6.5 g/dL (6.3-8.2)
--- NOTE | 2017-10-09 18:53 | PDOC H&P ---
History of Present Illness Admission Date/PCP: 10/09/17 16:04 KYRA CHAUHAN MD Patient complains of: RUQ Pains History of Present Illness: FABIAN LONG is a 56 year old female who was transfered from [facility] per patient request. Patient also took Plavix yesterday which was prescribed for her after she had a stroke last year. Hospital does not have platelets to give prior to surgery. She was noted to have an acute calculus cholecystitis. She claimed she had a big meal yesterday as their Easter celebration and last night c/o svere RUQ pains associated with nausea and went to the ER at the other hospital. Past Medical History Cardiac Medical History: Denies: Coronary Artery Disease, Myocardial Infarction, Hypertension Pulmonary Medical History: Denies: Asthma, Bronchitis, Chronic Obstructive Pulmonary Disease (COPD), Pneumonia Neurological Medical History: Denies: Migraine, Seizures Neurological History Note: Had a stroke last year with her symptom of left eyelids closing up. She had Plavix since.Took it last yesterday. GI Medical History: Denies: Hepatitis, Hiatal Hernia Musculoskeltal Medical History: Denies: Arthritis Psychiatric Medical History: Denies: Depression Hematology: Denies: Anemia, Sickle Cell Disease Past Surgical History Past Surgical History: Reports: Appendectomy, Hysterectomy, Tonsillectomy Denies: Amputation, Mastectomy, Pacemaker Social History Smoking Status: Former Smoker Frequency of Alcohol Use: None Hx Recreational Drug Use: No Drugs: None Hx Prescription Drug Abuse: No Family History Family History: CAD, CVA, DM Parental Family History Reviewed: Yes - Father of [place] in his 40's Children Family History Reviewed: No Sibling(s) Family History Reviewed.: Yes - brother of [place] last year in his 40's Medication/Allergy Home Medications: Timolol Maleate [Timoptic 0.5% Oph Soln 5 ml] 1 drop OS BID 06/26/17 Atorvastatin Calcium [Lipitor 80 mg Tablet] 80 mg PO QHS #30 tablet 06/27/17 Aspirin [Ecotrin 325 mg EC Tablet] 325 mg PO DAILY 10/09/17 Clopidogrel Bisulfate [Clopidogrel] 75 mg PO DAILY 10/09/17 Lodoxamide Tromethamine [Alomide] 10 ml OP DAILY 10/09/17 Medroxyprogesterone Acet [Provera 10 mg Tablet] 10 mg PO DAILY 10/09/17 Allergies/Adverse Reactions: Penicillins Allergy (Unknown, Verified 06/26/17 11:51) Review of Systems Constitutional: PRESENT: other - Denies fever/chills Eyes: PRESENT: other - no visual/hearing changes Cardiovascular: PRESENT: other - no chest pains Respiratory: PRESENT: other - no cough Gastrointestinal: PRESENT: nausea Neurological: PRESENT: other - Had stroke last year with symptom of inability to open left eye which has then resolved. Endocrine: PRESENT: other - no polyuria Hematologic/Lymphatic: PRESENT: other - no easy bruising Physical Exam Vital Signs: Intake & Output 10/08/17 10/09/17 10/10/17 06:59 06:59 06:59 Weight 90.1 kg General appearance: PRESENT: mild distress Head exam: PRESENT: atraumatic Eye exam: PRESENT: conjunctiva pink Mouth exam: PRESENT: dry mucosa Neck exam: PRESENT: full ROM Respiratory exam: PRESENT: clear to auscultation palmira Cardiovascular exam: PRESENT: RRR Pulses: PRESENT: normal radial pulses Vascular exam: PRESENT: normal capillary refill GI/Abdominal exam: PRESENT: soft, tenderness - RUQ Rectal exam: PRESENT: deferred Extremities exam: PRESENT: full ROM Musculoskeletal exam: PRESENT: ambulatory Neurological exam: PRESENT: alert, oriented to person, oriented to place, oriented to time, oriented to situation Psychiatric exam: PRESENT: appropriate affect Skin exam: PRESENT: normal color, warm Results Laboratory Results: 10/09/17 18:08 Seg Neutrophils % Not Reportable Lymphocytes % Not Reportable Monocytes % Not Reportable Eosinophils % Not Reportable Basophils % Not Reportable Absolute Neutrophils Not Reportable Absolute Lymphocytes Not Reportable Absolute Monocytes Not Reportable Absolute Eosinophils Not Reportable Absolute Basophils Not Reportable Assessment & Plan - Diagnosis (1) Gallbladder calculus with acute cholecystitis Is this a current diagnosis for this admission?: Yes (3) 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) Is this a current diagnosis for this admission?: Yes (4) Parietal lobe infarction Is this a current diagnosis for this admission?: Yes (5) Postmenopausal Is this a current diagnosis for this admission?: Yes (6) Stroke Qualifiers: CVA mechanism: embolism Precerebral and cerebral artery: anterior cerebral artery Laterality of affected vessel: right Qualified Code(s): I63.421 - 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
[2017-10-09] MEDS: NORMAL SALINE 1000 ML 1,000 ML IV PRN (18:58)
[2017-10-09] MEDS: FENTANYL CITRATE INJ/PF 100 MCG/2 ML AMPUL IV PRN (19:00)
[2017-10-09] MEDS: CIPROFLOXACIN 400 MG/D5W RTU 400 MG/200 ML RTUPB IV SCH (22:08)
[2017-10-10] MEDS: FENTANYL CITRATE INJ/PF 100 MCG/2 ML AMPUL IV PRN (03:07)
[2017-10-10] MEDS: NORMAL SALINE 1000 ML 1,000 ML IV PRN (03:08)
--- NOTE | 2017-10-10 09:18 | PDOC PROGRESS REPORT ---
Subjective Progress Note for:: 10/10/17 Reason For Visit: ACUTE CHOLECYSTITIS Patient having some pain right upper quadrant no nausea or vomiting. Received platelets this a.m., 1 packet Physical Exam Vital Signs: Temp Pulse Resp BP Pulse Ox 98.2 F 107 H 15 145/65 H 92 10/10/17 07:53 10/10/17 07:53 10/10/17 07:53 10/10/17 07:53 10/10/17 07:53 Intake & Output 10/09/17 10/10/17 10/11/17 06:59 06:59 06:59 Intake Total 1450 294 Balance 1450 294 Weight 90.1 kg General appearance: PRESENT: no acute distress GI/Abdominal exam: PRESENT: other - Soft no peritoneal signs no rigidity tender right upper quadrant. Results Laboratory Results: 10/09/17 18:08 10/09/17 18:08 10/09/17 10/09/17 10/09/17 18:08 18:08 18:08 WBC 28.3 H RBC 4.03 Hgb 12.0 Hct 36.3 MCV 90 MCH 29.8 MCHC 33.1 RDW 13.1 Plt Count 280 Seg Neutrophils % Not Reportable Lymphocytes % Not Reportable Monocytes % Not Reportable Eosinophils % Not Reportable Basophils % Not Reportable Absolute Neutrophils Not Reportable Absolute Lymphocytes Not Reportable Absolute Monocytes Not Reportable Absolute Eosinophils Not Reportable Absolute Basophils Not Reportable Sodium 136.0 L Potassium 3.5 L Chloride 99 Carbon Dioxide 26 Anion Gap 11 BUN 8 Creatinine 0.43 L Est GFR ( Amer) > 60 Est GFR (Non-Af Amer) > 60 Glucose 147 H Calcium 9.4 Total Bilirubin 0.5 AST 22 ALT 45 Alkaline Phosphatase 105 Total Protein 6.5 Albumin 3.9 Lipase 31.5 Blood Type AB POSITIVE Antibody Screen NEGATIVE Assessment & Plan - Diagnosis (1) Gallbladder calculus with acute cholecystitis Qualifiers: Biliary obstruction: without biliary obstruction Qualified Code(s): K80.00 - Calculus of gallbladder with acute cholecystitis without obstruction Is this a current diagnosis for this admission?: Yes Plan: Symptomatic cholelithiasis with cholecystitis, leukocytosis. Patient has held her Plavix for 2 days, he received a complete platelet pack this morning. There is no clinical evidence of sepsis. CT scan at [facility] shows gallstones and thickened gallbladder wall ; no other pathologic findings. Remains on intravenous antibiotics. Recommendations and plan 1. Proceed with laparoscopic, possible open cholecystectomy today, 1 hour, possible drain; risks benefits alternatives of planned procedure including bleeding, infection, bile duct injury, need for additional surgery, change in bowel habits all discussed with patient. She expressed understanding and agrees to proceed.
[2017-10-10] MEDS: CIPROFLOXACIN 400 MG/D5W RTU 400 MG/200 ML RTUPB IV SCH ×2 (10:03→21:09)
[2017-10-10] MEDS ORDERED: LIDOCAINE 2% INJ-PF (20 MG/ML) 2 ML AMPUL ONE (12:43)
[2017-10-10] MEDS ORDERED: NEOSTIGMINE METHYLSULFATE 10 MG/10 ML VIAL ONE (12:43)
[2017-10-10] MEDS ORDERED: GLYCOPYRROLATE INJ 0.4 MG/2 ML VIAL ONE (12:43)
[2017-10-10] MEDS ORDERED: METOCLOPRAMIDE HCL INJ/PF 10 MG/2 ML SDV ONE (12:43)
[2017-10-10] MEDS ORDERED: ROCURONIUM BROMIDE INJ 50 MG/5 ML VIAL IV ONE (12:43)
[2017-10-10] MEDS ORDERED: ONDANSETRON HCL INJ/PF 4 MG/2 ML SDV ONE (12:43)
[2017-10-10] MEDS ORDERED: SUCCINYLCHOLINE CHLORIDE INJ 200 MG/10 ML VIAL ONE (12:43)
[2017-10-10] MEDS ORDERED: DEXAMETHASONE SOD PHOSPHATE INJ 4 MG/1 ML VIAL ONE (12:43)
[2017-10-10] MEDS ORDERED: BUPIVACAINE HCL 0.25 % INJ/PF (2.5 MG/1 ML) 30 ML VIAL ONE (14:17)
[2017-10-10] MEDS ORDERED: FENTANYL CITRATE INJ/PF 100 MCG/2 ML AMPUL ONE (14:20)
[2017-10-10] MEDS ORDERED: MIDAZOLAM 2 MG/2 ML INJ ONE (14:20)
[2017-10-10] MEDS ORDERED: PROPOFOL INJ 200 MG/20 ML VIAL IV ONE (14:21)
[2017-10-10] MEDS ORDERED: ACETAMINOPHEN 100 ML IV ONE (14:21)
[2017-10-10] MEDS ORDERED: EPHEDRINE SULFATE INJ 50 MG/1 ML AMPULE ONE (14:21)
[2017-10-10] MEDS ORDERED: PROMETHAZINE HCL INJ 25 MG/1 ML VIAL IV PRN ×2 (14:54)
[2017-10-10] MEDS ORDERED: DIPHENHYDRAMINE HCL 50 MG/ML VIAL IV PRN (14:54)
[2017-10-10] MEDS ORDERED: MEPERIDINE HCL/PF INJ 25 MG/1 ML DISP.SYRIN IV PRN (14:54)
[2017-10-10] MEDS ORDERED: OXYCODONE-ACETAMINOPHEN 5-325 MG TABLET PO PRN ×2 (14:54)
[2017-10-10] MEDS ORDERED: FENTANYL CITRATE INJ/PF 100 MCG/2 ML AMPUL IV PRN ×3 (14:54)
[2017-10-10] MEDS ORDERED: ONDANSETRON HCL INJ/PF 4 MG/2 ML SDV IV PRN ×2 (14:54→16:07)
--- NOTE | 2017-10-10 15:53 | Operative Report ---
Operative Report DATE OF SURGERY: 10/10/17 PREOPERATIVE DIAGNOSIS: Acute cholecystitis with cholelithiasis POSTOPERATIVE DIAGNOSIS: Same with intra-abdominal adhesions OPERATION: 1. Laparoscopic lysis of adhesions. 2. Laparoscopic cholecystectomy SURGEON: KYRA OHARA
--- NOTE | 2017-10-10 16:12 | Operative Report ---
Operative Report DATE OF SURGERY: 10/10/17 PREOPERATIVE DIAGNOSIS: Acute cholecystitis with cholelithiasis POSTOPERATIVE DIAGNOSIS: Same with intra-abdominal adhesions OPERATION: 1. Laparoscopic lysis of adhesions. 2. Laparoscopic cholecystectomy SURGEON: KYRA OHARA ANESTHESIA: GA TISSUE REMOVED OR ALTERED: Gallbladder with contents COMPLICATIONS: None ESTIMATED BLOOD LOSS: 30 cc INTRAOPERATIVE FINDINGS: See below PROCEDURE: After obtaining informed consent, the patient was taken to the operating room. General Anesthesia was induced; the arms were extended, and the abdomen was exposed, and prepped and draped in a sterile fashion. Instrumentation was set up for laparoscopic cholecystectomy. Surgical plan and surgical timeout were conducted. A vertical incision was made above the umbilicus, and a verres needle was inserted uneventfully into the peritoneal cavity. Pneumoperitoneum was established. The verres needle was removed and a 5 mm trocar was inserted and a 5 mm flexible laparoscope was inserted. Visualization of the peritoneal cavity confirmed safe uneventful entry. There were extensive adhesions in the patient' s right lower quadrant consistent with previous appendectomy. Under direct visualization, we took down several of these adhesions with electrocautery after installing 1 2 and 3 more ports all under direct visualization. Were placed one in the subxiphoid position and second third in the subcostal position. Dense adhesions between the gallbladder and the gastroduodenal area. In fact tissues were quite stuck and required a fair amount of blunt and suction dissection until the infundibulum was freed from the gastroduodenal area. Photos were taken. Were careful back to the duodenum which appeared unharmed. Visualization of the hepatobiliary anatomy revealed no anatomic variations ; there was a moderate amount of edema; a grasper was placed on the fundus of the gallbladder and the gallbladder is elevated over the right surface of the liver; a second grasper was used to grasp the infundibulum of the gallbladder. The neck of the gallbladder and junction with the cystic duct was dissected out. The Cystic artery was in its usual location medial and cephalad to the cystic duct. The cystic artery was surrounded with a right angle clamp, clipped twice proximally and divided with laparoscopic scissors. The did use a LigaSure to help clear some of the inflammatory peel around the triangle of Calot low We now opened the triangle of Calot by dividing the peritoneal reflection on both the medial and lateral sides of the cystic duct infundibular junction. The critical view was obtained. We now milked the cystic duct of any possible stones, clipped the cystic duct approximately 3 times once distally and divided with scissors. The gallbladder was now removed from the undersurface of the liver using hook cautery dissection. Graspers were repositioned and the gallbladder was in an Endobag then removed uneventfully from the abdominal cavity through the super umbilical port site incision. The specimen was examined, then passed off to pathology for permanent analysis. We returned to the peritoneal cavity check for bleeding, and evidence of bile leak, and there was none. We Confirmed satisfactory placement of clips on cystic duct and cystic artery were secured . At this point we felt the operation was complete. The subcutaneous tissue was then anesthetized with quarter percent Marcaine Sponge and needle counts are correct. The supraumbilical port site was closed with 0 Vicryl suture using the disposable suture passer. All ports removed under direct visualization pneumoperitoneum evacuated, and 5 mm port wounds closed with 3-0 Vicryl suture, benzoin and Steri -Strips. The patient was extubated, and taken to the recovery room in stable condition.
[2017-10-10] MEDS: CEFAZOLIN 1 GM/D5W RTU 1 GM/50 ML RTUPB IV SCH (17:41)
[2017-10-10] MEDS ORDERED: DOCUSATE SODIUM 100 MG CAPSULE PO SCH (18:00)
[2017-10-10] MEDS: KETOROLAC TROMETHAMINE 10 MG TABLET PO PRN (19:55)
[2017-10-11 00:15] LABS: HEMATOCRIT 32.3 % (36.0-47.0); HEMOGLOBIN 10.9 g/dL (12.0-15.5); MEAN CORPUSCULAR HEMOGLOBIN 30.2 pg (27.0-33.4); MEAN CORPUSCULAR HGB CONC 33.6 g/dL (32.0-36.0); MEAN CORPUSCULAR VOLUME 90 fl (80-97); PLATELET COUNT 284 10^3/uL (150-450); RED CELL DISTRIBUTION WIDTH 13.3 % (11.5-14.0); WHITE BLOOD COUNT 17.8 10^3/uL (4.0-10.5)
[2017-10-11] MEDS: CEFAZOLIN 1 GM/D5W RTU 1 GM/50 ML RTUPB IV SCH (02:01)
[2017-10-11] MEDS: NORMAL SALINE 1000 ML 1,000 ML IV PRN (02:14)
[2017-10-11] MEDS: KETOROLAC TROMETHAMINE 10 MG TABLET PO PRN (03:25)
--- NOTE | 2017-10-11 07:04 | DISCHARGE SUMMARY E ---
Discharge Summary NAME: FABIAN LONG : 1960 AGE: 56Y ADMITTED: 10/09/2017 DISCHARGED: 10/11/2017 REASON FOR ADMISSION: ACUTE CHOLECYSTITIS. SUMMARY OF HOSPITALIZATION: The patient is a 56-year-old white female with a history of previous stroke, on Plavix, who was [facility]. Please see her past medical and surgical history for complete records. The patient was admitted to surgicalist's service, kept n.p.o. on IV fluids and had her Plavix held. On 10/10/2017, she was taken to the operating room after having undergone a platelet transfusion prophylactically. She was found to have acute cholecystitis with cholelithiasis. She tolerated this procedure well and postoperatively, she had no complications. Her diet was advanced. She tolerated this well and she had no significant pain. On the first postoperative day, she was felt to have received maximum benefit from her hospitalization and was discharged home. DISCHARGE DIAGNOSES: 1. ACUTE CHOLECYSTITIS; CHOLELITHIASIS. STATUS POST LAPAROSCOPIC CHOLECYSTECTOMY WITH DR. OHARA. DISPOSITION: Patient will be discharged home in the care of her family. DISCHARGE INSTRUCTIONS: 1. Follow up with [facility] in approximately 1 to 2 weeks. 2. Resume preoperative medication, diet, and activity. 3. Take Tylenol and Motrin p.r.n. pain. DICTATING PHYSICIAN: KYRA OHARA M.D. [id number] PHY#: [id number] ID: [id number] JOB#: [id number] ACCT: [id number] cc:KYRA OHARA M.D. > [facility]
--- NOTE | 2017-10-11 07:33 | Progress Note ---
Provider Note Provider Note: Talked to Dr. Yousif this morning. He states that there are no medical issues that need to be addressed by the hospitalist team. This patient was added to the Hospitalist census by Dr. Gonzalez. No consult ordered. Respectfully signing off.
[2017-10-11 08:54] VITALS: BP 124/62
== END 2017-10-11 09:43 | disposition home or self-care (01) | DRG 419 ==
LOC: 2N 16:04
PROVIDERS: ADMIT Surgery; ATTEND Surgery
PROC: 0DN94ZZ Release Duodenum, Percutaneous Endoscopic Approach (ICD-10-PCS; 2017-10-10)
PROC: 30233R1 Transfusion of Nonautologous Platelets into Peripheral Vein, Percutaneous Approach (ICD-10-PCS; 2017-10-10)
PROC: 0FT44ZZ Resection of Gallbladder, Percutaneous Endoscopic Approach (ICD-10-PCS; principal; 2017-10-10 15:00)
DX: K80.00 Calculus of gallbladder with acute cholecystitis without obstruction (principal); K66.0 Peritoneal adhesions (postprocedural) (postinfection); K82.8 Other specified diseases of gallbladder; Z86.73 Personal history of transient ischemic attack (TIA), and cerebral infarction without residual deficits; Z79.02 Long term (current) use of antithrombotics/antiplatelets; Z90.49 Acquired absence of other specified parts of digestive tract; Z90.710 Acquired absence of both cervix and uterus; Z82.49 Family history of ischemic heart disease and other diseases of the circulatory system; Z82.3 Family history of stroke; Z83.3 Family history of diabetes mellitus; Z79.82 Long term (current) use of aspirin; Z88.0 Allergy status to penicillin; Z87.891 Personal history of nicotine dependence
CPT/HCPCS: 36415; 36430; 790; 80053; 83690; 85025; 85027; 86850; 86900; 86901; 88304; J0131; J0330; J0690; J0744; J1100; J2250; J2405; J2704; J2765; J3010; J3490; J7030; P9035

== ENCOUNTER → 2017-12-05 | Outpatient (CLI) | payer BC ==
--- NOTE | 2017-12-05 17:00 | WOMENS IMAGING REPORT ---
EXAM DESCRIPTION: 3D SCREENING MAMMO BILAT COMPLETED DATE/TIME: 12/05/2017 9:13 am REASON FOR STUDY: ROUTINE SCREENING;Z12.31 Z12.31 ENCNTR SCREEN MAMMOGRAM FOR MALIGNANT NEOPLASM OF DELMA COMPARISON: 2012 to 2016 TECHNIQUE: Standard craniocaudal and mediolateral oblique views of each breast recorded using digita l acquisition and breast tomosynthesis. LIMITATIONS: None. FINDINGS: No masses, calcifications or architectural distortion. No areas of suspicion. Read with the assistance of CAD. .[facility] - R2 [employer] Version 1.3 .[facility] Imaging - R2 Cenova Version 1.3 .[facility] - R2 Cenova Version 2.4 .[facility] [place] - R2 Cenova Version 2.4 .[facility] - R2 [employer] Version 9.2 IMPRESSION: NORMAL MAMMOGRAM. BIRADS 1. BREAST DENSITY: b. There are scattered areas of fibroglandular density. BIRAD: 1 NEGATIVE RECOMMENDATION: ROUTINE SCREENING COMMENT: The patient has been notified of the results by letter per [place] requirements. Additional no tification policies are in place for contacting patient with suspicious or incomplete findings. Quality ID #225: The [employer] recommends an annual screening mammogram for women aged 40 years or over. This facility utilizes a reminder system to ensure that all patients receive reminder letters, and/or direct phone calls for appointments. This includes reminders for routine scr eening mammograms, diagnostic mammograms, or other Breast Imaging Interventions when appropriate. Th is patient will be placed in the appropriate reminder system. The [employer] (ACR) has developed recommendations for screening MRI of the breast s in certain patient populations, to be used in conjunction with mammography. Breast MRI surveillanc e may be appropriate for women with more than 20% lifetime risk of developing breast cancer as deter mined by genetic testing, significant family history of the disease, or history of mantle radiation f or Hodgkins Disease. ACR Practice Guidelines 2008. DBT Technology DBT is a type of tomographic mammography. With conventional mammography, overlapping breast tissue ma y make lesions difficult to detect, even with good compression. DBT uses an x-ray tube that rotates a round the breast, taking images at different angles. These images are then combined to create thin sl ices of the breast that the radiologist can view as a 3D reconstruction. The [employer] unit can perform full-field digital mammograms (2D imaging); or DBT (3D imaging); or both, in a combination mode that quickly performs both the mammogram and the tomosynthesis scan while the breast is still compressed. PQRS 6045F: Fluoroscopic imaging is not utilized for breast tomosynthesis. TECHNICAL DOCUMENTATION: FINDING NUMBER: (1) ASSESSMENT: (1) JOB ID: [id number] [employer]- All Rights Reserved Reading location - IP/workstation name: [email or web address]
== END ==
LOC: WI 08:57
PROVIDERS: ATTEND Family Medicine
DX: Z12.31 Encounter for screening mammogram for malignant neoplasm of breast (principal)
CPT/HCPCS: 77063; 77067

== ENCOUNTER → 2019-01-29 | Outpatient (CLI) | payer BC ==
--- NOTE | 2019-01-29 09:58 | WOMENS IMAGING REPORT ---
EXAM DESCRIPTION: 3D SCREENING MAMMO BILAT COMPLETED DATE/TIME: 01/29/2019 9:24 am REASON FOR STUDY: Z12.31 ROUTINE 3D BILATERAL SCREENING Z12.31 ENCNTR SCREEN MAMMOGRAM FOR MALIGNAN T NEOPLASM OF DELMA COMPARISON: 12/05/2017 and 08/31/2016. EXAM PARAMETERS: Views: Standard craniocaudal and mediolateral oblique views of each breast recorded using digital acquisition and breast tomosynthesis. Read with the assistance of CAD. .[facility] - [employer] Version 9.2 LIMITATIONS: None. FINDINGS: No suspicious masses, suspicious calcifications or architectural distortion. No areas of c oncern. IMPRESSION: NEGATIVE MAMMOGRAM. BIRADS 1. BREAST DENSITY: a. The breasts are almost entirely fatty. BIRAD: ASSESSMENT: 1 NEGATIVE RECOMMENDATION: ROUTINE SCREENING COMMENT: The patient has been notified of the results by letter per MQSA requirements. Additional no tification policies are in place for contacting patient with suspicious or incomplete findings. Quality ID #225: The [employer] recommends an annual screening mammogram for women aged 40 years or over. This facility utilizes a reminder system to ensure that all patients receive reminder letters, and/or direct phone calls for appointments. This includes reminders for routine scr eening mammograms, diagnostic mammograms, or other Breast Imaging Interventions when appropriate. Th is patient will be placed in the appropriate reminder system. TECHNICAL DOCUMENTATION: FINDING NUMBER: (1) ASSESSMENT: (1) JOB ID: [id number] [employer]- All Rights Reserved Reading location - IP/workstation name: [email or web address]
== END ==
LOC: WI 09:00
PROVIDERS: ATTEND Family Medicine
DX: Z12.31 Encounter for screening mammogram for malignant neoplasm of breast (principal)
CPT/HCPCS: 77063; 77067

== ENCOUNTER 2019-03-27 08:48 | Emergency (ER) | payer OTHER, BC ==
[2019-03-27 09:37] LABS: ABSOLUTE BASOPHILS # (AUTO) 0.1 10^3/uL (0.0-0.2); ABSOLUTE EOSINOPHILS # (AUTO) 0.1 10^3/uL (0.0-0.6); ABSOLUTE LYMPHOCYTES (AUTO) 2.7 10^3/uL (0.5-4.7); ABSOLUTE MONOCYTES (AUTO) 0.7 10^3/uL (0.1-1.4); ABSOLUTE NEUT (AUTO) 5.9 10^3/uL (1.7-8.2); BASOPHILS % (AUTO) 0.7 % (0-2); EOSINOPHILS % (AUTO) 1.1 % (0-6); HEMATOCRIT 36.8 % (36.0-47.0); HEMOGLOBIN 12.1 g/dL (12.0-15.5); LYMPHOCYTES % (AUTO) 28.9 % (13-45); MEAN CORPUSCULAR HEMOGLOBIN 29.7 pg (27.0-33.4); MEAN CORPUSCULAR HGB CONC 32.9 g/dL (32.0-36.0); MEAN CORPUSCULAR VOLUME 90 fl (80-97); PLATELET COUNT 298 10^3/uL (150-450); RED BLOOD COUNT 4.08 10^6/uL (3.72-5.28); RED CELL DISTRIBUTION WIDTH 13.7 % (11.5-14.0); SEGMENTED NEUTROPHILS % (AUTO) 62.3 % (42-78); TOTAL CELLS COUNTED % (AUTO) 100 %; WHITE BLOOD COUNT 9.5 10^3/uL (4.0-10.5)
[2019-03-27 09:56] LABS: ALBUMIN 3.8 g/dL (3.5-5.0); ALKALINE PHOSPHATASE 83 U/L (38-126); ANION GAP 8 (5-19); ASPARTATE AMINO TRANSFERASE 31 U/L (14-36); BILIRUBIN,DIRECT 0.1 mg/dL (0.0-0.4); BILIRUBIN,TOTAL 0.3 mg/dL (0.2-1.3); BLOOD UREA NITROGEN 18 mg/dL (7-20); CALCIUM 9.2 mg/dL (8.4-10.2); CARBON DIOXIDE 28 mmol/L (22-30); CHLORIDE 104 mmol/L (98-107); CREATINE KINASE 68 U/L (30-135); GLUCOSE 83 mg/dL (75-110); POTASSIUM 4.4 mmol/L (3.6-5.0); TOTAL PROTEIN 6.4 g/dL (6.3-8.2)
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
[2019-03-27 12:54] VITALS: BP 112/72
--- NOTE | 2019-03-28 22:14 | EKG REPORT ---
SEVERITY:- NORMAL ECG - SINUS RHYTHM : Confirmed by: Nain Ma MD 28-Mar-2019 22:13:39
== END 2019-03-27 12:55 | disposition home or self-care (01) ==
LOC: ER 08:48
DX: I47.1 Supraventricular tachycardia (principal); M25.579 Pain in unspecified ankle and joints of unspecified foot; M54.2 Cervicalgia; M25.519 Pain in unspecified shoulder; R42 Dizziness and giddiness; V87.7XXA Person injured in collision between other specified motor vehicles (traffic), initial encounter
CPT/HCPCS: 36415; 80053; 82550; 83735; 84443; 84484; 85025; 93005; 93010; 99285

== ENCOUNTER → 2020-02-19 | Outpatient (CLI) | payer OTHER, BC ==
--- NOTE | 2020-02-20 09:00 | WOMENS IMAGING REPORT ---
EXAM DESCRIPTION: 3D SCREENING MAMMO BILAT IMAGES COMPLETED DATE/TIME: 02/19/2020 9:46 am REASON FOR STUDY: Z12.39 ENCOUNTER FOR OTH SCREENING FOR MALIGNANT NEOPLASM OF BREAST Z12.[address] FOR OTH SCREENING FOR MALIGNANT NEOPLASM OF COMPARISON: Multiple since 2013 EXAM PARAMETERS: Views: Standard craniocaudal and mediolateral oblique views of each breast recorded using digital acquisition and breast tomosynthesis. Read with the assistance of CAD. [employer]er Version 9.2 LIMITATIONS: None. FINDINGS: No suspicious masses, suspicious calcifications or architectural distortion. No areas of c oncern. IMPRESSION: NEGATIVE MAMMOGRAM. BIRADS 1. BREAST DENSITY: a. The breasts are almost entirely fatty. BIRAD: ASSESSMENT: 1 NEGATIVE RECOMMENDATION: ROUTINE SCREENING Please continue yearly bilateral screening mammography/tomosynthesis in February 2021. COMMENT: The patient has been notified of the results by letter per MQSA requirements. Additional no tification policies are in place for contacting patient with suspicious or incomplete findings. Quality ID #[id number]: The [employer] recommends an annual screening mammogram for women aged 40 years or over. This facility utilizes a reminder system to ensure that all patients receive reminder letters, and/or direct phone calls for appointments. This includes reminders for routine scr eening mammograms, diagnostic mammograms, or other Breast Imaging Interventions when appropriate. Th is patient will be placed in the appropriate reminder system. TECHNICAL DOCUMENTATION: FINDING NUMBER: (1) ASSESSMENT: (1) JOB ID: [id number] 2010 [employer]- All Rights Reserved Reading location - IP/workstation name: [id number]
== END ==
LOC: WI 09:18
PROVIDERS: ATTEND Family Medicine
DX: Z12.31 Encounter for screening mammogram for malignant neoplasm of breast (principal)
CPT/HCPCS: 77063; 77067